=== PATIENT | male | born 1975 | race African-American/Black ===

== ENCOUNTER 2016-10-17 22:02 | Inpatient (IN) | payer SELFPAY ==
[~2016-10-17] VITALS: Ht 182.9 cm; Wt 125.2 kg
--- NOTE | ~2016-10-17 | CO ---
Unit #: [id number] #: [id number] Patient: JUAN PABLO HALL [id number] [facility]. [place], [place] [address] [id number] MR#: [id number] NAME: JUAN PABLO HALL ROOM: 242 Age: 41 Sex: M Admission Date: 10/18/2016 : 1975 Attending Physician: Joselito Ureña M.D. Primary Care Physician: Primary Care Physician No Consultation Date: 10/19/2016 CONSULTATION REPORT HISTORY OF PRESENT ILLNESS Mr. Hall is a 41-year-old, black male, appears to have first time left perirectal abscess noted on CT scanning. This needs to be opened, drained, and cleaned out. He has never had one before. He denies any major cardiovascular, respiratory, renal, or metabolic diseases. White blood cell count was 13,000. ALLERGIES He has no known allergies. PHYSICAL EXAMINATION GENERAL: Cooperative, alert, black male. HEENT: Clear. No jaundice. Pupils equal, reactive to light. CHEST: Clear to auscultation and percussion. CARDIAC: Rhythm is regular. ABDOMEN: Soft, nontender. The area in question is in the perirectal abscess on the left side at about 8 o'clock, indurated area consistent with perirectal abscess is noted. PLAN This needs to be opened, drained, and cleaned out. Risks have been explained to the patient. He understands. We will proceed. Dictated by... Will Hou/qi TD: 10/19/2016 06:24 JOB #: [id number] CONSULTATION REPORT Page 1 of 1 X Wilian Live MD X CONSULTATION REPORT
--- NOTE | ~2016-10-17 | OR ---
Unit #: [id number] #: [id number] Patient: JUAN PABLO BRADLEY [id number] [address] [place], [place] [address] [id number] I MR#: [id number] NAME: JUAN PABLO BRADLEY ROOM: 242 Date of Procedure: 10/19/2016 Admission Date: 10/18/2016 Surgeon: Yuval Cleary M.D. : 1975 Attending Physician: Joselito Ureña M.D. Primary Care Physician: Primary Care Physician No OPERATIVE REPORT PREOPERATIVE DIAGNOSIS Perirectal abscess. POSTOPERATIVE DIAGNOSIS Perirectal abscess. PROCEDURE PERFORMED Incision and drainage of left anterior perirectal abscess. ANESTHESIA General LMA anesthesia with 0.5% Marcaine plain local anesthesia. FINDINGS The patient had a large abscess in the left anterior perirectal area. It was incised, drained and all loculations were broken up. SPECIMENS Sent to microbiology. COMPLICATIONS None apparent. CONDITION The patient tolerated the procedure well. INDICATIONS FOR PROCEDURE The patient is a 41-year-old black male, who presents at this time with a several day history of pain and discomfort in the perianal area. He was found on CT scan to have a perirectal abscess. He presents at this time for incision and drainage. DESCRIPTION OF PROCEDURE After obtaining informed consent as well as receiving scheduled antibiotics, the patient was brought to the operating room and after adequate general LMA anesthesia was obtained, head was placed very carefully in lithotomy position using candy-cane stirrups and all pressure points were carefully padded and all extremities were manipulated carefully. His perineum was prepped and draped in a sterile fashion. The area of induration was present in the left anterior aspect. The area was aspirated with 22-gauge needle and purulent material was found. An incision was made with the 11 blade and a large amount of purulent material was evacuated. All loculations were broken up and the wound was Unit #: [id number] #: [id number] Patient: JUAN PABLO BRADLEY copiously irrigated. The areas were infiltrated with 0.5% Marcaine plain local anesthesia and good hemostasis was obtained with the Bovie. The cavity was packed with a saline soaked fluff. A dry dressing was applied followed by an ABD pad and mesh panties. Needle counts, sponge counts, and instrument counts were all correct as reported by the scrub nurse x2. The patient went from the operating room to recovery room in stable condition. Dictated by... Will Osorio/qi TD: 10/19/2016 10:21 JOB #: [id number] CC: Pj Garcia M.D. [facility] OPERATIVE REPORT Page 1 of 1 X Yuval Cleary MD X PROCEDURE OPERATIVE NOTE
--- NOTE | ~2016-10-17 | DS ---
Unit #: [id number] #: [id number] Patient: JUAN PABLO BRADLEY [id number] [address] [place], [place] [address] [id number] I MR#: [id number] NAME: JUAN PABLO BRADLEY ROOM: 242 Age: 41 Sex: M Admission Date: 10/18/2016 : 1975 Discharge Date: 10/19/2016 Attending Physician: Joselito Ureña M.D. Primary Care Physician: No Primary Care Physician DISCHARGE SUMMARY REASON FOR ADMISSION Perirectal abscess. HISTORY OF PRESENT ILLNESS/HOSPITAL COURSE Please see H and P for complete details. Consultation was placed to [facility]. Patient underwent OR intervention by Dr. Yuval Cleary. Please see procedure note for complete details. The patient underwent I and D. Postoperatively he, otherwise, did well, received IV pain medications, which have been transitioned to p.o. pain medications. The patient appears clinically stable for discharge. He will be taught appropriate wound care dressing changes while at home. He will be given a prescription for Augmentin. Wound care, as well as VNA services, will follow up with him at time of discharge. I will also give him a prescription for Staples 10/325 mg #40 at time of discharge. He will follow up with Dr. Cleary within 3-5 days. Home health services will follow at time of discharge, as well. FINAL DISCHARGE DIAGNOSES 1. Perirectal abscess. 2. Tobacco abuse. DISCHARGE MEDICATIONS 1. Augmentin 875 mg p.o. b.i.d. x10 days. 2. Staples 10/325 mg 1 tablet p.o. q.4 p.r.n. (#40). DISCHARGE CONDITION Stable. DISCHARGE DISPOSITION Home. Dictated by... Will RoperN/erlinda TD: 10/21/2016 09:55 JOB #: [id number] Unit #: [id number] #: [id number] Patient: JUAN PABLO BRADLEY DISCHARGE SUMMARY Page 1 of 1 X Joselito Ureña MD X DISCHARGE SUMMARY
--- NOTE | ~2016-10-17 | CT2 ---
[facility] A Service of [facility] & [facility] RADIOLOGY TEXT RESULTS PATIENT: JUAN PABLO BRADLEY LOCATION: C2A 242-01 : [birth year] UNIT #: [id number] AGE: [address]: Pj Garcia MD SEX: M ORDER DR: [id number] [facility] [address] [facility]. [place], [place] [address] [id number] I MR#: [id number] #: [id number] NAME: JUAN PABLO BRADLEY : 1975 SEX: M STUDY DATE/TIME: 10/18/2016 0:44 UNIT: C2A ROOM: 242 STUDY DESCRIPTION: CT Abd and Pelv W Cont Attending Physician: Pj Garcia M.D. Ordering Physician: Marisol Avila M.D. Primary Care Physician: No Primary Care Physician MEDICAL IMAGING REPORT This report is preliminary unless electronic signature is present EXAM CT abdomen and pelvis with contrast, 10/18/2016. HISTORY Perianal abscess for 1 week with pain. COMPARISON None. PROCEDURE 5-mm axial images from lung bases through the lesser trochanters after intravenous contrast administration. Enteric contrast was not administered. Sagittal and coronal reformatted images were obtained. FINDINGS ABDOMEN FINDINGS: Mild atelectasis is seen posteriorly within the lung bases, left greater than right. There are left ninth through twelfth rib fractures posteriorly which appear relatively subacute with trace adjacent left pleural thickening or effusion. No basilar pneumothorax is seen. Chronic-appearing compression deformity of L3 without subluxation. 2 tiny jueo-egia-7-mm low-density lesions in the right hepatic lobe are technically too small to characterize, but are statistically favored to represent benign finding, such as a tiny cyst or angioma. The gallbladder is contracted. The spleen, pancreas, adrenals and kidneys have a normal appearance. The appendix is normal. Bowel appears nonthickened and noninflamed. PELVIS FINDINGS: Perianal abscess deviates slightly toward the left of midline with overlying subcutaneous induration. It measures 2.2 x 2.0 x 4.2 cm (AP x transverse x craniocaudal). Urinary bladder and prostate gland are normal. STS. [facility] A Service of [facility] & [facility] RADIOLOGY TEXT RESULTS PATIENT: JUAN PABLO BRADLEY LOCATION: [facility] 242-01 : [birth year] UNIT #: [id number] AGE: [address]: Pj Garcia MD SEX: M ORDER DR: IMPRESSION 1. Perianal abscess slightly toward the left of midline measuring 4.2 x 2.2 x 2 cm. 2. Subacute-appearing left ninth through twelfth rib fractures posteriorly with trace left pleural thickening or fluid. Mild left greater right basilar atelectasis. 3. Chronic-appearing L3 compression fracture. Dictated by... Светлана Ernst M.D. THIS IS AN ELECTRONICALLY VERIFIED REPORT Светлана Ernst M.D. at 10/18/2016 9:39 PM YESSENIA/toni TD: 10/18/2016 16:55 JOB #: [id number] MEDICAL IMAGING REPORT Page 1 of 1 COPY
--- NOTE | ~2016-10-17 | HP ---
Unit #: [id number] #: [id number] Patient: JUAN PABLO BRADLEY [id number] [address] [address] [id number] I MR#: [id number] NAME: JUAN PABLO BRADLEY ROOM: [id number] Age: 41 Sex: M Admission Date: 10/18/2016 : 1975 Attending Physician: Pj Garcia M.D. Primary Care Physician: No Primary Care Physician HISTORY AND PHYSICAL REASON FOR ADMISSION Perirectal abscess. HISTORY OF PRESENT ILLNESS The patient is a 41-year-old very pleasant male, relatively healthy with a relatively unremarkable past medical history, who presented for rectal pain for approximately seven days with a fever of 101. He also described increasing discomfort with defecation as well as constipation secondary to the above. He also stated that he was unable to ambulate secondary to the pain that he was experiencing and therefore presented to the ER. While evaluated in the emergency room, he underwent a CT abdomen and pelvis which showed a large perianal abscess, 4.2 x 2.1 cm, and thus he is being admitted for the same. His initial white count was 13.2. PAST MEDICAL HISTORY None. PAST SURGICAL HISTORY None. HOME MEDICATIONS None. ALLERGIES No known drug allergies. REVIEW OF SYSTEMS Please see HPI. A 12-point otherwise negative except for those positive and noted in the HPI. SOCIAL HISTORY Positive tobacco. Negative illicit drug use. Positive alcohol, socially only. FAMILY HISTORY Reviewed, noncontributory and nonpertinent. PHYSICAL EXAMINATION VITAL SIGNS: Temperature 100.1, pulse 106, respiratory rate 16, blood pressure 147/90. GENERAL APPEARANCE: The patient is a 41-year-old male lying comfortably. Has received morphine, Zofran, as well as, Zosyn in the ER. Currently, has no complaints. HEENT: Head: Atraumatic, normocephalic. Ears: Tympanic membranes did Unit #: [id number] #: [id number] Patient: JUAN PABLO BRADLEY not reveal any erythema or injection. NECK: Supple. CARDIOVASCULAR: S1, S2 without murmur. RESPIRATORY: Clear. GASTROINTESTINAL/ABDOMEN: Nontender, nondistended. EXTREMITIES: Lower extremity exam: No evidence of any lower extremity edema. No calf tenderness. RECTAL: As per ER report, reveals perineum with induration including the inferior left buttock, not involving anus and/or scrotum. A well-circumscribed area is also noted. DIAGNOSTIC STUDIES LABORATORY: Initial laboratory studies show an elevated white count of 13.2. This morning's recheck now shows a white count of 10.4. CMP unremarkable. INITIAL ADMISSION DIAGNOSIS Perirectal abscess. PLAN 1. Admission med/surg floor. 2. [facility] consult. 3. IV vancomycin. 4. IV Zosyn. 5. Routine laboratory studies. 6. Pain management and/or symptom management. 7. Consideration for possible OR intervention and/or surgical intervention per [facility]. 8. Patient is full code. Plans have been reviewed with him in detail. Dictated by Will Roper/alex TD: 10/18/2016 13:47 JOB #: [id number] HISTORY AND PHYSICAL Page 1 of 1 X Joselito Ureña MD X HISTORY AND PHYSICAL
[2016-10-17 23:39] LABS: BASOPHIL# 0.1 X10e3 (0-0.3); BASOPHIL% 0.5 % (0-2.5); EOSINOPHIL# 0.2 X10e3 (0-0.7); EOSINOPHIL% 1.9 % (0.0-7.0); LYMPHOCYTE# 1.8 X10e3 (1.0-3.5); LYMPHOCYTE% 13.7 % (17.0-45.0); MEAN CORPUSCULAR HEMOGLOBIN 28.4 PG (28-34); MEAN CORPUSCULAR HGB CONC 32.7 g/dL (30-36); MEAN PLATELET VOLUME 7.9 FL (6.5-11.5); MONOCYTE# 1.5 X10e3 (0-1.0); MONOCYTE% 11.5 % (3.0-12.0); NEUTROPHIL# 9.6 X10e3 (1.5-7.1); NEUTROPHIL% 72.4 % (40-75); PLATELET COUNT 295 X10e3 (140-420); RED BLOOD COUNT 4.94 X10e (3.90-5.60); RED CELL DISTRIBUTION WIDTH 13.9 % (11.0-15.5); WHITE BLOOD COUNT 13.2 X10e3 (4.0-10.5)
[2016-10-17 23:42] LABS: DIFF IND NO
[2016-10-17 23:58] LABS: CALCIUM SERUM 8.7 mg/dL (8.4-10.2); GLOM FILT RATE Estimated 93.7 mL/min (>60); POTASSIUM 3.5 mmol/L (3.5-5.1)
[2016-10-18] MEDS ORDERED: NO MEDICATIONS (01:23)
[2016-10-18 08:41] LABS: BASOPHIL# 0.1 X10e3 (0-0.3); BASOPHIL% 0.5 % (0-2.5); DIFF IND NO; EOSINOPHIL# 0.3 X10e3 (0-0.7); EOSINOPHIL% 2.7 % (0.0-7.0); HEMATOCRIT 40.4 % (38.0-50.0); HEMOGLOBIN 13.4 gm/dL (13.0-16.0); LYMPHOCYTE# 1.8 X10e3 (1.0-3.5); LYMPHOCYTE% 17.5 % (17.0-45.0); MEAN CELL VOLUME 87.7 FL (83-96); MEAN CORPUSCULAR HEMOGLOBIN 29.1 PG (28-34); MEAN CORPUSCULAR HGB CONC 33.2 g/dL (30-36); MEAN PLATELET VOLUME 7.7 FL (6.5-11.5); MONOCYTE% 9.3 % (3.0-12.0); NEUTROPHIL# 7.3 X10e3 (1.5-7.1); PLATELET COUNT 254 X10e3 (140-420); RED BLOOD COUNT 4.61 X10e (3.90-5.60); WHITE BLOOD COUNT 10.4 X10e3 (4.0-10.5)
[2016-10-18 09:14] LABS: ALBUMIN SERUM 3.2 g/dL (3.5-5.0); BILIRUBIN,TOTAL 0.9 mg/dL (0.2-2.0); CALCIUM SERUM 8.4 mg/dL (8.4-10.2); GLOM FILT RATE Estimated 108.6 mL/min (>60); POTASSIUM 3.8 mmol/L (3.5-5.1); PROTEIN TOTAL SERUM 6.5 g/dL (6.0-8.3)
[2016-10-19 12:09] LABS: HEMATOCRIT 40.9 % (38.0-50.0); HEMOGLOBIN 13.4 gm/dL (13.0-16.0); MEAN CELL VOLUME 87.8 FL (83-96); MEAN CORPUSCULAR HEMOGLOBIN 28.8 PG (28-34); MEAN CORPUSCULAR HGB CONC 32.8 g/dL (30-36); MEAN PLATELET VOLUME 7.6 FL (6.5-11.5); RED BLOOD COUNT 4.66 X10e (3.90-5.60); RED CELL DISTRIBUTION WIDTH 13.8 % (11.0-15.5); WHITE BLOOD COUNT 10.6 X10e3 (4.0-10.5)
[2016-10-19 12:39] LABS: ALBUMIN SERUM 3.3 g/dL (3.5-5.0); BILIRUBIN,TOTAL 0.6 mg/dL (0.2-2.0); BUN/CREATININE RATIO 6.36; CALCIUM SERUM 8.7 mg/dL (8.4-10.2); CREATININE SERUM 1.1 mg/dL (0.6-1.4); GLOM FILT RATE Estimated 96.8 mL/min (>60); POTASSIUM 4.1 mmol/L (3.5-5.1)
[2016-10-19] MEDS ORDERED: TYL325 PO (16:37)
[2016-10-19] MEDS ORDERED: DAKIN'S473 M1 MC (16:38)
[2016-10-19] MEDS ORDERED: AUGMENTIN PO (16:39)
[2016-10-19] MEDS ORDERED: HYDROCODON-ACE1 EAC5 PO (16:39)
== END 2016-10-19 18:46 | disposition home or self-care (01) | DRG 346 ==
LOC: CED 22:02 → C2A 10-18 01:30 → CEDOF 10-18 01:30 → CED 10-18 01:38 → C2A 10-18 14:45
PROVIDERS: Family Medicine; Student in an Organized Health Care Education/Training Program; Surgery
PROC: 0D9P0ZZ Drainage of Rectum, Open Approach (ICD-10-PCS; principal; 2016-10-19 09:00)
DX: K61.1 Rectal abscess (principal); F17.210 Nicotine dependence, cigarettes, uncomplicated
CPT/HCPCS: 36415; 74177; 80048; 80053; 82607; 83036; 83605; 84443; 85025; 85027; 87040; 87070; 87075; 87077; 87205; 96361; 96374; 96375; 99285; J1170; J1885; J2250; J2270; J2405; J2543; J3010; J3370; Q9967